=== PATIENT | female | born 1995 | race Asian ===

== ENCOUNTER 2023-08-09 22:14 | Inpatient (IN) ==
[2023-08-09] MEDS ORDERED: Buffered Lidocaine 1% SYRIN 1 ml INTRADERM ONE (23:13)
[2023-08-09] MEDS ORDERED: Lidocaine 1% VIAL 10 MG/ML 30 ML VIAL INJ PRN (23:13)
[2023-08-09] MEDS: Lactated Ringers 1000 ml BAG 1,000 ML IV ONE (23:30)
[2023-08-10 00:05] LABS: ABS Eosinophils 0.1 10^3/uL (0.0-0.5); ABS Lymphocytes 2.7 10^3/uL (1.0-4.8); ABS Neutrophils 9.9 10^3/uL (1.5-7.6); ABS Nucleated RBC 0.01 10^3/ul; Eosinophil % 0.5 %; Hematocrit 33.6 % (35-45); Hemoglobin 11.2 g/dL (11.5-14.3); Lymphocyte % 19.9 %; Mean Corpuscular Hemoglobin 27.8 pg (27-33); Mean Corpuscular Hgb Conc 33.3 g/dL (31-36); Mean Corpuscular Volume 83.6 fL (80-97); Mean Platelet Volume 7.7 fL (7.5-11.2); Nucleated Red Blood Cells % 0.1 %/100WBC (0.0-0.8); Platelet Count 256 10^3/uL (150-450); Red Blood Count 4.02 10^6/uL (3.63-4.92); Red Cell Distribution Width 15.8 % (12-17); White Blood Count 13.7 10^3/uL (3.8-11.8)
[2023-08-10] MEDS: fentaNYL 100 mcg/2 ml 50 MCG/ML VIAL IV SLOW PU PRN (00:47)
[2023-08-10 01:14] LABS: Urine Benzodiazepine Screen None Detected (None Detect); Urine Cannabinoids Screen None Detected (None Detect); Urine Opiates Screen None Detected (None Detect)
[2023-08-10] MEDS: OBEPIDURAL (200 ML) 200 ML EPIDURAL ONE (01:15)
[2023-08-10] MEDS ORDERED: Phenylephrine 40 mcg/mL 10mL (400mcg) SYRINGE IV PUSH PRN ×2 (01:21)
[2023-08-10] MEDS ORDERED: Sodium Citrate/Citric Acid LIQ 15 ML UDC PO PRN (01:21)
[2023-08-10] MEDS ORDERED: Lactated Ringers 1000 ml BAG 1,000 ML IV ONE (01:21)
[2023-08-10] MEDS: Lactated Ringers 1000 ml BAG 1,000 ML IV SCH (01:22)
[2023-08-10] MEDS: fentaNYL 100 mcg/2 ml 50 MCG/ML VIAL ONE (01:23)
[2023-08-10] MEDS: Lidocaine 1.5% EPI 1:200,000 30 ML SDV ONE (01:23)
[2023-08-10] MEDS ORDERED: Lactated Ringers 1000 ml BAG 1,000 ML IV SCH ×2 (02:00→07:00)
[2023-08-10 03:23] LABS: Urine Appearance Clear; Urine Bilirubin Negative (Negative); Urine Blood Trace (Negative); Urine Color Light-Yellow; Urine Glucose Negative (Negative); Urine Ketones 3+ (Negative); Urine Nitrite Negative (Negative); Urine Protein Negative (Negative); Urine Specific Gravity 1.017 (1.002-1.030); Urine Urobilinogen Negative (Negative)
[2023-08-10] MEDS ORDERED: Oxytocin in LR 20,000 MILLI.UNIT/1,000 ML BAG IV ONE (05:45)
[2023-08-10] MEDS ORDERED: Glycerin ADULT 2.4 gm SUPP PR PRN (06:22)
[2023-08-10] MEDS: OBEPIDURAL (200 ML) 200 ML EPIDURAL SCH (08:06)
[2023-08-10 09:03] LABS: Hematocrit 22.5 % (35-45); Hemoglobin 7.7 g/dL (11.5-14.3)
[2023-08-10] MEDS: Dibucaine 1% OINT 28.35 GM TUBE PR PRN (10:09)
[2023-08-10] MEDS: Witch Hazel PAD JAR TOPICAL PRN (10:09)
[2023-08-10] MEDS: Iron Sucrose 200 MG in NS 0.9% 100 ml BAG 100 ML IVPB ONE (12:14)
[2023-08-10] MEDS: Oxytocin in LR 20,000 MILLI.UNIT/1,000 ML BAG IV SCH (12:15)
[2023-08-11 08:06] LABS: ABS Basophils 0.1 10^3/uL (0.0-0.1); ABS Eosinophils 0.2 10^3/uL (0.0-0.5); ABS Lymphocytes 4.6 10^3/uL (1.0-4.8); ABS Monocytes 1.4 10^3/uL (0.0-0.9); ABS Neutrophils 13.1 10^3/uL (1.5-7.6); ABS Nucleated RBC 0.01 10^3/ul; Eosinophil % 0.8 %; Hematocrit 17.6 % (35-45); Lymphocyte % 23.9 %; Mean Corpuscular Hemoglobin 28.6 pg (27-33); Mean Corpuscular Hgb Conc 33.9 g/dL (31-36); Mean Corpuscular Volume 84.4 fL (80-97); Mean Platelet Volume 7.5 fL (7.5-11.2); Platelet Count 184 10^3/uL (150-450); Red Blood Count 2.09 10^6/uL (3.63-4.92); Red Cell Distribution Width 16.1 % (12-17); White Blood Count 19.2 10^3/uL (3.8-11.8)
[2023-08-11] MEDS: Iron Sucrose 200 MG in NS 0.9% 100 ml BAG 100 ML IVPB ONE (14:10)
[2023-08-12 08:06] VITALS: BP 119/55
[2023-08-12 09:01] LABS: Hematocrit 19.7 % (35-45); Hemoglobin 6.5 g/dL (11.5-14.3)
== END 2023-08-12 14:40 | disposition home or self-care (01) | DRG 807 ==
LOC: MCHOBOUT 22:14 → MCHOB 23:12
PROVIDERS: ADMIT Midwife; ATTEND Midwife